=== PATIENT | male | born 1970 | race Two or more races ===

== ENCOUNTER 2021-01-10 09:48 | Emergency (ER) | payer OTHER ==
[~2021-01-10] VITALS: Ht 172.7 cm; Wt 81.6 kg
--- NOTE | 2021-01-10 10:07 | NUR ---
patient biblapd, for medical clearance for booking, alcohol wiothdrawal. On room air, breathing evenly and unlabored. Kept comfortable, will continue to monitor accordingly.
--- NOTE | 2021-01-10 10:08 | NUR ---
discahrged in no distress, accompanied by [employer] going back to [facility].
[2021-01-10 10:09] VITALS: BP 118/71
== END 2021-01-10 10:09 ==
LOC: ER 09:53
DX: F10.10 Alcohol abuse, uncomplicated (principal); Y90.9 Presence of alcohol in blood, level not specified